=== PATIENT | male | born 1995 ===

== ENCOUNTER 2018-12-02 21:53 | Emergency (ER) | payer MEDICARE, OTHER ==
[2018-12-02 22:30] LABS: BASO % 0.7 % (0.0-2.0); EOS # 0.1 K/uL (0.0-0.7); EOS % 1.8 % (0.0-4.0); HEMOGLOBIN 15.9 g/dL (12.0-18.0); LYMPH # 2.4 K/uL (1.0-4.3); LYMPH % 47.1 % (20.0-40.0); MEAN CELL VOLUME 87.2 fL (80.0-94.0); MEAN CORPUSCULAR HEMOGLOBIN 29.4 pg (27.0-31.0); MEAN CORPUSCULAR HGB CONC 33.8 g/dL (33.0-37.0); MEAN PLATELET VOLUME 8.2 fL (7.2-11.7); MONO # 0.2 K/uL (0.0-0.8); MONO % 3.6 % (0.0-10.0); NEUT # 2.4 K/uL (1.8-7.0); NEUT % 46.8 % (50.0-75.0); NRBC % 0.1 % (0.0-2.0); RBC 5.42 Mil/uL (4.40-5.90); RED CELL DISTRIBUTION WIDTH 13.5 % (11.5-14.5); WHITE BLOOD COUNT 5.1 K/uL (4.8-10.8)
[2018-12-02 22:43] LABS: ALB/GLOB RATIO 1.7 (1.0-2.1); ALBUMIN 4.7 g/dL (3.5-5.0); ALT/SGPT 45 U/L (21-72); AST/SGOT 27 U/L (17-59); BLOOD UREA NITROGEN 12 mg/dL (9-20); CALCIUM 8.9 mg/dl (8.6-10.4); GFR NON-AFRICAN AMERICAN > 60
--- NOTE | 2018-12-02 23:28 | C.PDOC ---
History Of Present Illness 23 year old male had an argument with mother yesterday, mobile crisis called today. Patient noncompliant with his prozac for the past 3-4 days. Denies suicidal ideation, homicidal ideation, hallucinations, or physical complaints. <Veto Elaine DO - Last Filed: 12/03/18 00:34> History Per: Patient History/Exam Limitations: no limitations Onset/Duration Of Symptoms: Days Current Symptoms Are (Timing): Still Present Associated Symptoms: denies: Suicidal Thoughts, Other (Homicidal ideation, Hallucination) Involuntary Hold By: None Recent travel outside of the [place]: No <Veto Elaine DO - Last Filed: 12/03/18 00:34> <Ramy Smith - Last Filed: 12/03/18 06:43> <Carolee Shell - Last Filed: 12/03/18 12:43> <Linsey Moya - Last Filed: 12/03/18 18:35> <Anatoly Summers - Last Filed: 12/03/18 19:39> Time Seen by Provider: 12/02/18 22:07 Chief Complaint (Nursing): Psychiatric Evaluation Past Medical History Reviewed: Historical Data, Nursing Documentation, Vital Signs Vital Signs: Last Vital Signs Temp 98.2 F 12/02/18 21:59 Pulse 85 12/02/18 21:59 Resp 20 12/02/18 21:59 BP 155/131 H 12/02/18 21:59 Pulse Ox 100 12/02/18 21:59 - Medical History PMH: Bipolar Disorder, Depression, Schizophrenia Denies: Diabetes, Hepatitis, HIV, HTN, Chronic Kidney Disease, Seizures, Sexually Transmitted Disease - [facility] Procedures APPLICATION OF SPLINT (09/08/14) FAMILY THERAPY (06/14/14) GROUP PSYCHOTHERAPY (12/12/15) INDIVID PSYCHOTHERAP NEC (06/14/14) INDIVIDUAL PSYCHOTHERAPY, COGNITIVE-BEHAVIORAL (12/12/15) OTHER GROUP THERAPY (06/14/14) PSYCHIA INTERV/EVAL NEC (03/22/15) Family History: States: Unknown Family Hx - Social History Hx Alcohol Use: No Hx Substance Use: No - Immunization History Hx Tetanus Toxoid Vaccination: No Hx Influenza Vaccination: No Hx Pneumococcal Vaccination: No <Veto Elaine DO - Last Filed: 12/03/18 00:34> Vital Signs: Last Vital Signs Temp 98.3 F 12/03/18 04:42 Pulse 82 12/03/18 04:42 Resp 20 12/03/18 04:42 BP 132/78 12/03/18 04:42 Pulse Ox 98 12/03/18 04:42 - [facility] Procedures APPLICATION OF SPLINT (09/08/14) FAMILY THERAPY (06/14/14) GROUP PSYCHOTHERAPY (12/12/15) INDIVID PSYCHOTHERAP NEC (06/14/14) INDIVIDUAL PSYCHOTHERAPY, COGNITIVE-BEHAVIORAL (12/12/15) OTHER GROUP THERAPY (06/14/14) PSYCHIA INTERV/EVAL NEC (03/22/15) <Ramy Smith - Last Filed: 12/03/18 06:43> Vital Signs: Last Vital Signs Temp 97.7 F 12/03/18 08:07 Pulse 86 12/03/18 08:07 Resp 20 12/03/18 08:07 BP 149/86 12/03/18 08:07 Pulse Ox 100 12/03/18 08:07 - [facility] Procedures APPLICATION OF SPLINT (09/08/14) FAMILY THERAPY (06/14/14) GROUP PSYCHOTHERAPY (12/12/15) INDIVID PSYCHOTHERAP NEC (06/14/14) INDIVIDUAL PSYCHOTHERAPY, COGNITIVE-BEHAVIORAL (12/12/15) OTHER GROUP THERAPY (06/14/14) PSYCHIA INTERV/EVAL NEC (03/22/15) <Carolee Shell - Last Filed: 12/03/18 12:43> Vital Signs: Last Vital Signs Temp 97.6 F 12/03/18 14:40 Pulse 99 H 12/03/18 14:40 Resp 16 12/03/18 14:40 BP 126/59 L 12/03/18 14:40 Pulse Ox 95 12/03/18 14:40 - [facility] Procedures APPLICATION OF SPLINT (09/08/14) FAMILY THERAPY (06/14/14) GROUP PSYCHOTHERAPY (12/12/15) INDIVID PSYCHOTHERAP NEC (06/14/14) INDIVIDUAL PSYCHOTHERAPY, COGNITIVE-BEHAVIORAL (12/12/15) OTHER GROUP THERAPY (06/14/14) PSYCHIA INTERV/EVAL NEC (03/22/15) <Linsey Moya - Last Filed: 12/03/18 18:35> Vital Signs: Last Vital Signs Temp 97.6 F 12/03/18 14:42 Pulse 114 H 12/03/18 19:10 Resp 16 12/03/18 19:10 BP 121/62 12/03/18 19:10 Pulse Ox 95 12/03/18 19:10 - [facility] Procedures APPLICATION OF SPLINT (09/08/14) FAMILY THERAPY (06/14/14) GROUP PSYCHOTHERAPY (12/12/15) INDIVID PSYCHOTHERAP NEC (06/14/14) INDIVIDUAL PSYCHOTHERAPY, COGNITIVE-BEHAVIORAL (12/12/15) OTHER GROUP THERAPY (06/14/14) PSYCHIA INTERV/EVAL NEC (03/22/15) <Anatoly Summers - Last Filed: 12/03/18 19:39> Review Of Systems Constitutional: Negative for: Fever, Chills Cardiovascular: Negative for: Chest Pain, Palpitations Respiratory: Negative for: Cough, Shortness of Breath Gastrointestinal: Negative for: Nausea, Vomiting, Abdominal Pain Psych: Negative for: Suicidal ideation, Other (Homicidal ideation, Hallucinations) <Veto Elaine DO - Last Filed: 12/03/18 00:34> Physical Exam - Physical Exam Appears: Non-toxic Skin: Normal Color, Warm, Dry Head: Atraumatic, Normacephalic Eye(s): bilateral: Normal Inspection Oral Mucosa: Moist Chest: Symmetrical, No Tenderness Cardiovascular: Rhythm Regular Respiratory: Normal Breath Sounds, No Rales, No Rhonchi, No Wheezing Gastrointestinal/Abdominal: Soft, No Tenderness Back: No CVA Tenderness Neurological/Psych: Oriented x3, Normal Speech <Veto Elaine DO - Last Filed: 12/03/18 00:34> ED Course And Treatment - Laboratory Results Result Diagrams: 12/02/18 22:12 12/02/18 22:12 Lab Results: Total Bilirubin 0.6 mg/dL (0.2-1.3) 12/02/18 22:12 AST 27 U/L (17-59) 12/02/18 22:12 ALT 45 U/L (21-72) 12/02/18 22:12 Alkaline Phosphatase 67 U/L (38-126) 12/02/18 22:12 Total Protein 7.4 g/dL (6.3-8.3) 12/02/18 22:12 Albumin 4.7 g/dL (3.5-5.0) 12/02/18 22:12 Globulin 2.7 gm/dL (2.2-3.9) 12/02/18 22:12 Albumin/Globulin Ratio 1.7 (1.0-2.1) 12/02/18 22:12 ECG: Interpreted By Me, Viewed By Me ECG Rhythm: Sinus Rhythm ECG Interpretation: Normal Interpretation Of ECG: Normal axis, normal intervals Rate From EC O2 Sat by Pulse Oximetry: 100 (Room air) Pulse Ox Interpretation: Normal Progress Note: EKG, blood work, CXR, and urinalysis ordered. <Veto Elaine DO - Last Filed: 12/03/18 00:34> - Laboratory Results Result Diagrams: 12/02/18 22:12 12/02/18 22:12 Lab Results: Total Bilirubin 0.6 mg/dL (0.2-1.3) 12/02/18 22:12 AST 27 U/L (17-59) 12/02/18 22:12 ALT 45 U/L (21-72) 12/02/18 22:12 Alkaline Phosphatase 67 U/L (38-126) 12/02/18 22:12 Total Protein 7.4 g/dL (6.3-8.3) 12/02/18 22:12 Albumin 4.7 g/dL (3.5-5.0) 12/02/18 22:12 Globulin 2.7 gm/dL (2.2-3.9) 12/02/18 22:12 Albumin/Globulin Ratio 1.7 (1.0-2.1) 12/02/18 22:12 Urine Color Yellow (YELLOW) 12/03/18 00:44 Urine Clarity Clear (Clear) 12/03/18 00:44 Urine pH 5.0 (5.0-8.0) 12/03/18 00:44 Ur Specific Carmichaels 1.026 (1.003-1.030) 12/03/18 00:44 Urine Protein Negative mg/dL (NEGATIVE) 12/03/18 00:44 Urine Glucose (UA) Normal mg/dL (Normal) 12/03/18 00:44 Urine Ketones Negative mg/dL (NEGATIVE) 12/03/18 00:44 Urine Blood Negative (NEGATIVE) 12/03/18 00:44 Urine Nitrate Negative (NEGATIVE) 12/03/18 00:44 Urine Bilirubin Negative (NEGATIVE) 12/03/18 00:44 Urine Urobilinogen 4.0 mg/dL (0.2-1.0) 12/03/18 00:44 Ur Leukocyte Esterase Neg Nadege/uL (Negative) 12/03/18 00:44 Urine WBC (Auto) 1 /hpf (0-5) 12/03/18 00:44 Ur Squamous Epith Cells < 1 /hpf (0-5) 12/03/18 00:44 ECG Interpretation: No Acute Changes - Radiology CXR: Interpreted by Me, Viewed By Me CXR Interpretation: Yes: No Acute Disease, Other (normal cjestfilm). No: Infiltrates Reevaluation Time: 06:20 <Ramy Smith - Last Filed: 12/03/18 06:43> - Laboratory Results Result Diagrams: 12/02/18 22:12 12/02/18 22:12 Lab Results: Total Bilirubin 0.6 mg/dL (0.2-1.3) 12/02/18 22:12 AST 27 U/L (17-59) 12/02/18 22:12 ALT 45 U/L (21-72) 12/02/18 22:12 Alkaline Phosphatase 67 U/L (38-126) 12/02/18 22:12 Total Protein 7.4 g/dL (6.3-8.3) 12/02/18 22:12 Albumin 4.7 g/dL (3.5-5.0) 12/02/18 22:12 Globulin 2.7 gm/dL (2.2-3.9) 12/02/18 22:12 Albumin/Globulin Ratio 1.7 (1.0-2.1) 12/02/18 22:12 Urine Color Yellow (YELLOW) 12/03/18 00:44 Urine Clarity Clear (Clear) 12/03/18 00:44 Urine pH 5.0 (5.0-8.0) 12/03/18 00:44 Ur Specific Carmichaels 1.026 (1.003-1.030) 12/03/18 00:44 Urine Protein Negative mg/dL (NEGATIVE) 12/03/18 00:44 Urine Glucose (UA) Normal mg/dL (Normal) 12/03/18 00:44 Urine Ketones Negative mg/dL (NEGATIVE) 12/03/18 00:44 Urine Blood Negative (NEGATIVE) 12/03/18 00:44 Urine Nitrate Negative (NEGATIVE) 12/03/18 00:44 Urine Bilirubin Negative (NEGATIVE) 12/03/18 00:44 Urine Urobilinogen 4.0 mg/dL (0.2-1.0) 12/03/18 00:44 Ur Leukocyte Esterase Neg Nadege/uL (Negative) 12/03/18 00:44 Urine WBC (Auto) 1 /hpf (0-5) 12/03/18 00:44 Ur Squamous Epith Cells < 1 /hpf (0-5) 12/03/18 00:44 <Carolee Shell - Last Filed: 12/03/18 12:43> - Laboratory Results Result Diagrams: 12/02/18 22:12 12/02/18 22:12 Lab Results: Total Bilirubin 0.6 mg/dL (0.2-1.3) 12/02/18 22:12 AST 27 U/L (17-59) 12/02/18 22:12 ALT 45 U/L (21-72) 12/02/18 22:12 Alkaline Phosphatase 67 U/L (38-126) 12/02/18 22:12 Total Protein 7.4 g/dL (6.3-8.3) 12/02/18 22:12 Albumin 4.7 g/dL (3.5-5.0) 12/02/18 22:12 Globulin 2.7 gm/dL (2.2-3.9) 12/02/18 22:12 Albumin/Globulin Ratio 1.7 (1.0-2.1) 12/02/18 22:12 Urine Color Yellow (YELLOW) 12/03/18 00:44 Urine Clarity Clear (Clear) 12/03/18 00:44 Urine pH 5.0 (5.0-8.0) 12/03/18 00:44 Ur Specific Carmichaels 1.026 (1.003-1.030) 12/03/18 00:44 Urine Protein Negative mg/dL (NEGATIVE) 12/03/18 00:44 Urine Glucose (UA) Normal mg/dL (Normal) 12/03/18 00:44 Urine Ketones Negative mg/dL (NEGATIVE) 12/03/18 00:44 Urine Blood Negative (NEGATIVE) 12/03/18 00:44 Urine Nitrate Negative (NEGATIVE) 12/03/18 00:44 Urine Bilirubin Negative (NEGATIVE) 12/03/18 00:44 Urine Urobilinogen 4.0 mg/dL (0.2-1.0) 12/03/18 00:44 Ur Leukocyte Esterase Neg Nadege/uL (Negative) 12/03/18 00:44 Urine WBC (Auto) 1 /hpf (0-5) 12/03/18 00:44 Ur Squamous Epith Cells < 1 /hpf (0-5) 12/03/18 00:44 <Linsey Moya - Last Filed: 12/03/18 18:35> - Laboratory Results Result Diagrams: 12/02/18 22:12 12/02/18 22:12 Lab Results: Total Bilirubin 0.6 mg/dL (0.2-1.3) 12/02/18 22:12 AST 27 U/L (17-59) 12/02/18 22:12 ALT 45 U/L (21-72) 12/02/18 22:12 Alkaline Phosphatase 67 U/L (38-126) 12/02/18 22:12 Total Protein 7.4 g/dL (6.3-8.3) 12/02/18 22:12 Albumin 4.7 g/dL (3.5-5.0) 12/02/18 22:12 Globulin 2.7 gm/dL (2.2-3.9) 12/02/18 22:12 Albumin/Globulin Ratio 1.7 (1.0-2.1) 12/02/18 22:12 Urine Color Yellow (YELLOW) 12/03/18 00:44 Urine Clarity Clear (Clear) 12/03/18 00:44 Urine pH 5.0 (5.0-8.0) 12/03/18 00:44 Ur Specific Carmichaels 1.026 (1.003-1.030) 12/03/18 00:44 Urine Protein Negative mg/dL (NEGATIVE) 12/03/18 00:44 Urine Glucose (UA) Normal mg/dL (Normal) 12/03/18 00:44 Urine Ketones Negative mg/dL (NEGATIVE) 12/03/18 00:44 Urine Blood Negative (NEGATIVE) 12/03/18 00:44 Urine Nitrate Negative (NEGATIVE) 12/03/18 00:44 Urine Bilirubin Negative (NEGATIVE) 12/03/18 00:44 Urine Urobilinogen 4.0 mg/dL (0.2-1.0) 12/03/18 00:44 Ur Leukocyte Esterase Neg Nadege/uL (Negative) 12/03/18 00:44 Urine WBC (Auto) 1 /hpf (0-5) 12/03/18 00:44 Ur Squamous Epith Cells < 1 /hpf (0-5) 12/03/18 00:44 <Anatoly Summers - Last Filed: 12/03/18 19:39> Progress - Re-Evaluation Re-evaluation Note: 12/03/18 11:17 ACCEPTED [place] [facility] [place] AND TRANSFER. PT INCREASINGLY ARGUMENTATIVE, AGITATED AND FIGHTING WITH STAFF MAKING UNREASONABLE DEMANDS DESPITE MULTIPLE VERBAL INTERVENTIONS. POSING THREAT TO SELF AND STAFF, HALDOL AND ATIVAN GIVEN. 12/03/18 13:[address] MOYA PENDING [facility] [place] <Carolee Shell - Last Filed: 12/03/18 12:43> Medical Decision Making Medical Decision Makin:24 Informed by crisis that pt has a bed at [facility] [place]. Accepting MD is Dr. Montiel. Dx Bipolar d/o, unspecified. <Lnisey Moya - Last Filed: 12/03/18 18:35> Medical Decision Making: signed over @ 1900 pending transfer to [facility] [place] involuntary for Bipolar w/u neg pt A&O x 3, irritable, anxious c/w kade persistent tachycardia prob related to anxiety and not etoh w/d as pt does not use alcohol regularly. Geodon PO and Lopressor PO given pt medically cleared for transfer to [facility] [place] consider frequent Geodon/Lopressor 50 mg PO doses for anxiety/tachycardia control. <Anatoly Summers - Last Filed: 12/03/18 19:39> Disposition <Veto Elaine DO - Last Filed: 12/03/18 00:34> - Disposition Disposition Time: 07:00 - POA Present On Arrival: None <Ramy Smith - Last Filed: 12/03/18 06:43> <Carolee Shell - Last Filed: 12/03/18 12:43> - Disposition Disposition Time: 14:30 ([facility] [place]) - POA Present On Arrival: None <Linsey Moya - Last Filed: 12/03/18 18:35> <Anatoly Summers - Last Filed: 12/03/18 19:39> - Disposition Disposition: Trans to Other Acute Care Hosp Condition: STABLE - Clinical Impression Clinical Impression: Psychiatric disorder, Bipolar 1 disorder - Scribe Statement The provider has reviewed the documentation as recorded by the Scribe Timmy Marroquin All medical record entries made by the Scribe were at my direction and person ally dictated by me. I have reviewed the chart and agree that the record accurately reflects my personal performance of the history, physical exam, medical decision making, and the department course for this patient. I have also personally directed, reviewed, and agree with the discharge instructions and disposition. <Veto Elaine DO - Last Filed: 12/03/18 00:34>
[2018-12-03 00:55] LABS: SQUAMOUS EPITHIAL < 1 /hpf (0-5); URINE BILIRUBIN NEGATIVE (NEGATIVE); URINE BLOOD NEGATIVE (NEGATIVE); URINE CLARITY Clear (Clear); URINE COLOR Yellow (YELLOW); URINE GLUCOSE (UA) NORMAL (Normal); URINE LEUKOCYTE ESTERASE NEG Leu/uL (Negative); URINE PROTEIN NEGATIVE (NEGATIVE)
[2018-12-03 01:29] LABS: BARBITURATES, UR NEGATIVE (NEGATIVE); BENZODIAZEPINES, UR NEGATIVE (NEGATIVE); OPIATES, UR NEGATIVE (NEGATIVE); PHENCYCLIDINE, UR NEGATIVE (NEGATIVE)
--- NOTE | 2018-12-03 09:08 | RAD ---
Chest x-ray single frontal view HISTORY: Psychiatric evaluation. COMPARISON: None available. FINDINGS: No focal infiltrate or effusion. Heart size within normal limits. IMPRESSION: No focal infiltrate or effusion.
[2018-12-03] MEDS ORDERED: Sodium Chloride 0.9% 1,000 ML IV ONE (16:50)
[2018-12-03] MEDS ORDERED: Metoprolol 1 mg/ml Inj IVP STA (20:12)
[2018-12-03 21:07] VITALS: PULSE 104; RESP 20; TEMP 97.2
[2018-12-03 21:17] VITALS: BP 101/63; O2SAT 96
--- NOTE | 2018-12-04 17:30 | CARD ---
APPROVED REPORT Date of service: 12/03/2018 EKG Measurement Heart [id number] <Conclusion> Sinus tachycardia Poor R wave progression Borderline ECG
== END 2018-12-03 21:50 | disposition short-term general hospital (02) ==
LOC: C.ER 21:53
DX: F31.9 Bipolar disorder, unspecified (principal); F99 Mental disorder, not otherwise specified
CPT/HCPCS: 71045; 80053; 81001; 82948; 83735; 84100; 85025; 93005; 96360; 96372; 99285; G0480; J1630; J2060; J3486; J7030